=== PATIENT | female | born 1990 | race American Indian/Alaskan Native ===

== ENCOUNTER 2017-01-22 04:09 | Emergency (ER) | payer SELFPAY ==
[2017-01-22] MEDS ORDERED: MOTRIN ONE (04:31)
[2017-01-22] MEDS ORDERED: MOTRIN PO ONE (04:43)
[2017-01-22] MEDS ORDERED: NORCO 5/325 PO ONE (06:00)
--- NOTE | 2017-01-22 06:05 | Emergency Department Report ---
ED ENT HPI - General Chief complaint: Dental/Oral Stated complaint: TOOTHACHES, SWOLLEN MOUTH Time Seen by Provider: 01/22/17 05:57 Source: patient Mode of arrival: Ambulatory Limitations: Language Barrier - History of Present Illness Initial comments: 27-year-old female past medical history none presents with complaint of 4 days of left-sided toothache. Patient states that she has had issues with wisdom teeth. Has had dental evaluation and is scheduled for an extraction but missed her appointment twice. Patient states she'll follow up with dentist within the next few days. No muffled voice speaking in full sentences no stridor no wheezing, no drooling denies any pus or blood drainage from mouth. States that chewing is painful. MD complaint: tooth pain Onset/Timin -: days(s) Location: tooth # (17,18) Severity: moderate Severity scale (0 -10): 7 Quality: aching Consistency: intermittent Worsens with: eating Context- Dental: history of dental caries Associated Symptoms: toothache - Related Data Previous Rx's Medication Instructions Recorded Last Taken Type Ibuprofen [Motrin 800 MG tab] 800 mg PO TID PRN #15 tablet 09/08/13 Unknown Rx Amoxicillin [Trimox CAP] 500 mg PO Q8H #30 capsule 09/16/14 Unknown Rx HYDROcodone/APAP 10-325 [[place] 1 each PO Q6HR PRN #16 tablet 09/16/14 Unknown Rx 10-325 mg TAB] Ondansetron [Zofran ODT TAB] 4 mg PO Q6H PRN #8 tab.rapdis 01/26/15 Unknown Rx Cyclobenzaprine [Flexeril 10mg] 10 mg PO TID PRN #30 tablet 02/08/15 Unknown Rx Naproxen [Naprosyn] 500 mg PO BID #30 tablet 02/08/15 Unknown Rx traMADol [Ultram 50 MG tab] 50 mg PO Q6HR PRN #20 tablet 02/08/15 Unknown Rx Cyclobenzaprine [Flexeril] 10 mg PO TID PRN #20 tablet 12/01/15 Unknown Rx Ibuprofen [Motrin] 800 mg PO Q8HR PRN #30 tablet 12/01/15 Unknown Rx Acetaminophen/Codeine [Tylenol 1 tab PO Q6H PRN #12 tab 01/22/17 Unknown Rx /Codeine # 3 tab] Amoxicillin [Trimox CAP] 500 mg PO Q8H #21 capsule 01/22/17 Unknown Rx Chlorhexidine Mouthwash [Peridex] 118 ml MM BID #1 bottle 01/22/17 Unknown Rx Ibuprofen [Motrin] 600 mg PO Q8H PRN #30 tablet 01/22/17 Unknown Rx Allergies Allergy/AdvReac Type Severity Reaction Status Date / Time No Known Allergies Allergy Verified 09/16/14 06:20 ED Dental HPI - General Chief complaint: Dental/Oral Stated complaint: TOOTHACHES, SWOLLEN MOUTH Time Seen by Provider: 01/22/17 05:57 Source: patient Mode of arrival: Ambulatory Limitations: Language Barrier - Related Data Previous Rx's Medication Instructions Recorded Last Taken Type Ibuprofen [Motrin 800 MG tab] 800 mg PO TID PRN #15 tablet 09/08/13 Unknown Rx Amoxicillin [Trimox CAP] 500 mg PO Q8H #30 capsule 09/16/14 Unknown Rx HYDROcodone/APAP 10-325 [[place] 1 each PO Q6HR PRN #16 tablet 09/16/14 Unknown Rx 10-325 mg TAB] Ondansetron [Zofran ODT TAB] 4 mg PO Q6H PRN #8 tab.rapdis 01/26/15 Unknown Rx Cyclobenzaprine [Flexeril 10mg] 10 mg PO TID PRN #30 tablet 02/08/15 Unknown Rx Naproxen [Naprosyn] 500 mg PO BID #30 tablet 02/08/15 Unknown Rx traMADol [Ultram 50 MG tab] 50 mg PO Q6HR PRN #20 tablet 02/08/15 Unknown Rx Cyclobenzaprine [Flexeril] 10 mg PO TID PRN #20 tablet 12/01/15 Unknown Rx Ibuprofen [Motrin] 800 mg PO Q8HR PRN #30 tablet 12/01/15 Unknown Rx Acetaminophen/Codeine [Tylenol 1 tab PO Q6H PRN #12 tab 01/22/17 Unknown Rx /Codeine # 3 tab] Amoxicillin [Trimox CAP] 500 mg PO Q8H #21 capsule 01/22/17 Unknown Rx Chlorhexidine Mouthwash [Peridex] 118 ml MM BID #1 bottle 01/22/17 Unknown Rx Ibuprofen [Motrin] 600 mg PO Q8H PRN #30 tablet 01/22/17 Unknown Rx Allergies Allergy/AdvReac Type Severity Reaction Status Date / Time No Known Allergies Allergy Verified 09/16/14 06:20 ED Review of Systems ROS: Stated complaint: TOOTHACHES, SWOLLEN MOUTH Other details as noted in HPI Constitutional: denies: chills, fever Eyes: denies: eye pain, eye discharge, vision change ENT: dental pain. denies: ear pain, throat pain Respiratory: denies: cough, shortness of breath, wheezing Cardiovascular: denies: chest pain, palpitations Endocrine: no symptoms reported Gastrointestinal: denies: abdominal pain, nausea, diarrhea Genitourinary: denies: urgency, dysuria, discharge Musculoskeletal: denies: back pain, joint swelling, arthralgia Skin: denies: rash, lesions Neurological: denies: headache, weakness, paresthesias Psychiatric: denies: anxiety, depression Hematological/Lymphatic: denies: easy bleeding, easy bruising ED Past Medical Hx - Past Medical History Hx Diabetes: Yes (gestational) Hx Dementia: Yes (gestational diabetes) - Surgical History Additional Surgical History: . bilateral elbow surgery d/t staph. - Social History Smoking Status: Never Smoker Substance Use Type: None - Medications Home Medications: Home Medications Medication Instructions Recorded Confirmed Last Taken Type Ibuprofen [Motrin 800 MG tab] 800 mg PO TID PRN #15 tablet 09/08/13 Unknown Rx Amoxicillin [Trimox CAP] 500 mg PO Q8H #30 capsule 09/16/14 Unknown Rx HYDROcodone/APAP 10-325 [[place] 1 each PO Q6HR PRN #16 tablet 09/16/14 Unknown Rx 10-325 mg TAB] Ondansetron [Zofran ODT TAB] 4 mg PO Q6H PRN #8 tab.rapdis 01/26/15 Unknown Rx Cyclobenzaprine [Flexeril 10mg] 10 mg PO TID PRN #30 tablet 02/08/15 Unknown Rx Naproxen [Naprosyn] 500 mg PO BID #30 tablet 02/08/15 Unknown Rx traMADol [Ultram 50 MG tab] 50 mg PO Q6HR PRN #20 tablet 02/08/15 Unknown Rx Cyclobenzaprine [Flexeril] 10 mg PO TID PRN #20 tablet 12/01/15 Unknown Rx Ibuprofen [Motrin] 800 mg PO Q8HR PRN #30 tablet 12/01/15 Unknown Rx Acetaminophen/Codeine [Tylenol 1 tab PO Q6H PRN #12 tab 01/22/17 Unknown Rx /Codeine # 3 tab] Amoxicillin [Trimox CAP] 500 mg PO Q8H #21 capsule 01/22/17 Unknown Rx Chlorhexidine Mouthwash [Peridex] 118 ml MM BID #1 bottle 01/22/17 Unknown Rx Ibuprofen [Motrin] 600 mg PO Q8H PRN #30 tablet 01/22/17 Unknown Rx ED Physical Exam - General Limitations: Language Barrier General appearance: alert, in no apparent distress - Head Head exam: Present: atraumatic, normocephalic - Eye Eye exam: Present: normal appearance, PERRL, EOMI - ENT ENT exam: Present: mucous membranes moist - Expanded ENT Exam Expanded Mouth exam: Present: normal external inspection Teeth exam: Present: dental caries (17,18), dental tenderness # (17,18) - Neck Neck exam: Present: normal inspection, full ROM - Respiratory Respiratory exam: Present: normal lung sounds bilaterally. Absent: respiratory distress - Cardiovascular Cardiovascular Exam: Present: regular rate, normal rhythm. Absent: systolic murmur, diastolic murmur, rubs, gallop - GI/Abdominal GI/Abdominal exam: Present: soft, normal bowel sounds - Extremities Exam Extremities exam: Present: normal inspection, full ROM - Back Exam Back exam: Present: normal inspection - Neurological Exam Neurological exam: Present: alert, oriented X3, CN II-XII intact, normal gait - Psychiatric Psychiatric exam: Present: normal affect, normal mood - Skin Skin exam: Present: warm, dry, intact, normal color. Absent: rash ED Course Vital Signs 01/22/17 04:37 Temperature 98.2 F Pulse Rate 66 Respiratory 18 Rate Blood Pressure 127/71 Blood Pressure 127/71 [Left] O2 Sat by Pulse 98 Oximetry ED Medical Decision Making - Medical Decision Making A/P: Dental cavity 1-Motrin, Tylenol 3, amoxicillin 1 week, Peridex mouthwash 2-patient advised to follow up as soon as possible for dental cavity. I advised patient that lack of follow-up and untreated dental cavity can result in infection of face and jaw and if left untreated can progress to sepsis and become lethal. Patient understood these instructions and agreed to follow-up on outpatient basis with dentist as soon as possible. 3-advised to return to ED [facility] for any significant bleeding pus drainage from oral cavity inability to tolerate by mouth, dyspnea shortness of breath muffled voice and/or stridor Critical care attestation.: If time is entered above; I have spent that time in minutes in the direct care of this critically ill patient, excluding procedure time. ED Disposition Clinical Impression: Dental caries, Impacted third molar tooth Disposition: DISCHARGED TO HOME OR SELFCARE Is pt being admited?: No Does the pt Need Aspirin: No Condition: Stable Instructions: Dental Caries (ED), Toothache (ED) Prescriptions: Acetaminophen/Codeine [Tylenol /Codeine # 3 tab] 1 tab PO Q6H PRN #12 tab PRN Reason: Toothache Amoxicillin [Trimox CAP] 500 mg PO Q8H #21 capsule Chlorhexidine Mouthwash [Peridex] 118 ml MM BID #1 bottle Ibuprofen [Motrin] 600 mg PO Q8H PRN #30 tablet PRN Reason: Pain Referrals: [facility] [Outside] - 3-5 Days Forms: Work/School Release Form(ED) Time of Disposition: 06:03
[2017-01-22 06:48] VITALS: BP 122/68
== END 2017-01-22 06:48 | disposition home or self-care (01) ==
LOC: ED 04:09
DX: K02.9 Dental caries, unspecified (principal); K01.1 Impacted teeth
CPT/HCPCS: 99282

== ENCOUNTER 2018-01-29 09:48 | Emergency (ER) | payer MEDICAID ==
[2018-01-29 10:29] VITALS: BP 109/68
[2018-01-29] MEDS ORDERED: TYLENOL PO ONE (12:34)
--- NOTE | 2018-01-29 12:35 | Emergency Department Report ---
Blank Doc - Documentation Documentation: Patient is a 28-year-old black female was presented with some lower back discomfort past several days. Patient is 17 weeks she denies any dysuria vaginal discharge or vaginal bleeding at this time. Patient also states that she has some congestion lower nose lives clear drainage. Patient has some scratchiness of the throat as well.
[2018-01-29 13:39] LABS: Bilirubin,Urine NEG (Negative); Blood,Urine NEG (Negative); Color,Urine Yellow (Yellow); Mucus,Urine FEW /HPF; Protein,Urine <15 mg/dL mg/dL (Negative); Urobilinogen,Urine < 2.0 mg/dL (<2.0)
--- NOTE | 2018-01-29 14:18 | Emergency Department Report ---
ED HPI - General Chief complaint: Back Pain/Injury Stated complaint: BACK PAIN Time Seen by Provider: 01/29/18 12:29 Source: patient Mode of arrival: Ambulatory Limitations: No Limitations - History of Present Illness Initial comments: This is a 28-year-old female nontoxic, well nourished in appearance, no acute signs of distress presents to the ED with c/o of intermittent back pain x4 days. Patient also is c/o of rhinorrhea and nasal congestion as clear drainage but denies any cough. Patient stated has history of allergic rhinitis. Patient denies any abdominal pain, fever, chills, nausea, vomiting, headache, stiff neck. Patient denies any urinary symptoms. Denies any vaginal bleeding. Denies any allergies or significant past medical history. MD Complaint: other (back pain) -: days(s) (4) Location: other (low back) Radiation: none Severity: mild Severity scale (0 -10): 8 Quality: aching Consistency: intermittent, now resolved Improves with: none Worsens with: none Associated symptoms: denies other symptoms. denies: nausea/vomiting, vaginal bleeding, vaginal discharge, abdominal pain, dysuria, headache, vision changes, malaise, dysparuenia, rash, seizure, shortness of breath, syncope, weakness Vaginal bleeding: none :: Yes Number of weeks : 17 OB History - Current : no complications OB History - Previous Pregnancies: gestational diabetes Pre-tammy care: followed by OB - Related Data : 2 Para: 1 Ab: 0 Previous Rx's Medication Instructions Recorded Last Taken Type Ibuprofen [Motrin 800 MG tab] 800 mg PO TID PRN #15 tablet 09/08/13 Unknown Rx Amoxicillin [Trimox CAP] 500 mg PO Q8H #30 capsule 09/16/14 Unknown Rx HYDROcodone/APAP 10-325 [[place] 1 each PO Q6HR PRN #16 tablet 09/16/14 Unknown Rx 10-325 mg TAB] Ondansetron [Zofran ODT TAB] 4 mg PO Q6H PRN #8 tab.rapdis 01/26/15 Unknown Rx Cyclobenzaprine [Flexeril 10mg] 10 mg PO TID PRN #30 tablet 02/08/15 Unknown Rx Naproxen [Naprosyn] 500 mg PO BID #30 tablet 05/10/15 Unknown Rx traMADol [Ultram 50 MG tab] 50 mg PO Q6HR PRN #20 tablet 02/08/15 Unknown Rx Cyclobenzaprine [Flexeril] 10 mg PO TID PRN #20 tablet 12/01/15 Unknown Rx Ibuprofen [Motrin] 800 mg PO Q8HR PRN #30 tablet 12/01/15 Unknown Rx Acetaminophen/Codeine [Tylenol 1 tab PO Q6H PRN #12 tab 01/22/17 Unknown Rx /Codeine # 3 tab] Amoxicillin [Trimox CAP] 500 mg PO Q8H #21 capsule 01/22/17 Unknown Rx Chlorhexidine Mouthwash [Peridex] 118 ml MM BID #1 bottle 01/22/17 Unknown Rx Ibuprofen [Motrin] 600 mg PO Q8H PRN #30 tablet 01/22/17 Unknown Rx Acetaminophen 500 mg PO Q8H PRN #30 tablet 01/29/18 Unknown Rx Fluticasone [Flonase] 1 spray NS QDAY #1 bottle 01/29/18 Unknown Rx Allergies Allergy/AdvReac Type Severity Reaction Status Date / Time No Known Allergies Allergy Verified 09/16/14 06:20 ED Review of Systems ROS: Stated complaint: BACK PAIN Other details as noted in HPI Constitutional: denies: chills, fever Eyes: denies: eye pain, eye discharge, vision change ENT: denies: ear pain, throat pain Respiratory: denies: cough, shortness of breath, wheezing Cardiovascular: denies: chest pain, palpitations Endocrine: no symptoms reported Gastrointestinal: denies: abdominal pain, nausea, diarrhea Genitourinary: denies: urgency, dysuria, discharge Musculoskeletal: back pain. denies: joint swelling, arthralgia Skin: denies: rash, lesions Neurological: denies: headache, weakness, paresthesias Psychiatric: denies: anxiety, depression Hematological/Lymphatic: denies: easy bleeding, easy bruising ED Past Medical Hx - Past Medical History Hx Diabetes: Yes (gestational) Hx Dementia: (gestational diabetes) - Surgical History Additional Surgical History: . bilateral elbow surgery d/t staph. - Social History Smoking Status: Never Smoker Substance Use Type: None - Medications Home Medications: Home Medications Medication Instructions Recorded Confirmed Last Taken Type Ibuprofen [Motrin 800 MG tab] 800 mg PO TID PRN #15 tablet 09/08/13 Unknown Rx Amoxicillin [Trimox CAP] 500 mg PO Q8H #30 capsule 09/16/14 Unknown Rx HYDROcodone/APAP 10-325 [[place] 1 each PO Q6HR PRN #16 tablet 09/16/14 Unknown Rx 10-325 mg TAB] Ondansetron [Zofran ODT TAB] 4 mg PO Q6H PRN #8 tab.rapdis 01/26/15 Unknown Rx Cyclobenzaprine [Flexeril 10mg] 10 mg PO TID PRN #30 tablet 02/08/15 Unknown Rx Naproxen [Naprosyn] 500 mg PO BID #30 tablet 02/08/15 Unknown Rx traMADol [Ultram 50 MG tab] 50 mg PO Q6HR PRN #20 tablet 02/08/15 Unknown Rx Cyclobenzaprine [Flexeril] 10 mg PO TID PRN #20 tablet 12/01/15 Unknown Rx Ibuprofen [Motrin] 800 mg PO Q8HR PRN #30 tablet 12/01/15 Unknown Rx Acetaminophen/Codeine [Tylenol 1 tab PO Q6H PRN #12 tab 01/22/17 Unknown Rx /Codeine # 3 tab] Amoxicillin [Trimox CAP] 500 mg PO Q8H #21 capsule 01/22/17 Unknown Rx Chlorhexidine Mouthwash [Peridex] 118 ml MM BID #1 bottle 01/22/17 Unknown Rx Ibuprofen [Motrin] 600 mg PO Q8H PRN #30 tablet 01/22/17 Unknown Rx Acetaminophen 500 mg PO Q8H PRN #30 tablet 01/29/18 Unknown Rx Fluticasone [Flonase] 1 spray NS QDAY #1 bottle 01/29/18 Unknown Rx ED Physical Exam - General Limitations: No Limitations General appearance: alert, in no apparent distress - Head Head exam: Present: atraumatic, normocephalic - Eye Eye exam: Present: normal appearance Pupils: Present: normal accommodation - ENT ENT exam: Present: normal exam, normal orophraynx, mucous membranes moist, TM's normal bilaterally, normal external ear exam - Neck Neck exam: Present: normal inspection, full ROM. Absent: tenderness, meningismus - Respiratory Respiratory exam: Present: normal lung sounds bilaterally. Absent: respiratory distress, wheezes, rales, rhonchi, stridor, chest wall tenderness, accessory muscle use, decreased breath sounds, prolonged expiratory - Cardiovascular Cardiovascular Exam: Present: regular rate, normal rhythm, normal heart sounds. Absent: irregular rhythm, systolic murmur, diastolic murmur, rubs, gallop - GI/Abdominal GI/Abdominal exam: Present: soft, normal bowel sounds. Absent: distended, tenderness, guarding, rebound, rigid, diminished bowel sounds - Rectal Rectal exam: Present: deferred - Extremities Exam Extremities exam: Present: normal inspection, full ROM, normal capillary refill - Back Exam Back exam: Present: normal inspection, full ROM, paraspinal tenderness (lumbar region). Absent: tenderness, CVA tenderness (R), CVA tenderness (L), muscle spasm, vertebral tenderness, rash noted - Neurological Exam Neurological exam: Present: alert, oriented X3, normal gait - Psychiatric Psychiatric exam: Present: normal affect, normal mood - Skin Skin exam: Present: warm, dry, intact, normal color. Absent: rash ED Course Vital Signs 01/29/18 10:25 Temperature 98.8 F Pulse Rate 94 H Respiratory 17 Rate Blood Pressure 109/68 O2 Sat by Pulse 99 Oximetry - Reevaluation(s) Reevaluation #1: 01/29/18 14:17 Patient is speaking in full sentences with no signs of distress noted. - Consultations Consultation #1: 01/29/18 14:18 Patient has been consulted with Dr. Scales about patient history, physical exam , and labs and examined and screened patient and agrees to ED plan of care and discharge plan of care. ED Medical Decision Making - Medical Decision Making This is a 28-year-old female that presents with back pain and allergic rhinitis. Patient was examined by me and Dr. Scales. A heart tone has been obtained by RN with 158. Patient received Tylenol in the ED in the ED and patient stated that symptoms have resolved and subsided. A UA obtained and within normal limits. She is discharged with Flonase and Tylenol. Patient was instructed to Follow-up with a primary care doctor in 3-5 days or if symptoms worsen and continue return to emergency room as soon as possible. At time of discharge, the patient does not seem toxic or ill in appearance. No acute signs of distress noted. Patient agrees to discharge treatment plan of care. No further questions noted by the patient. Critical care attestation.: If time is entered above; I have spent that time in minutes in the direct care of this critically ill patient, excluding procedure time. ED Disposition Clinical Impression: Back pain Qualifiers: Back pain location: low back pain Chronicity: acute Back pain laterality: unspecified Sciatica presence: without sciatica Qualified Code(s): M54.5 - Low back pain Allergic rhinitis Qualifiers: Allergic rhinitis trigger: unspecified Allergic rhinitis seasonality: seasonal Qualified Code(s): J30.2 - Other seasonal allergic rhinitis Disposition: TO HOME OR SELFCARE Is pt being admited?: No Does the pt Need Aspirin: No Condition: Stable Instructions: (ED) Additional Instructions: Follow-up with a primary care doctor in 3-5 days or if symptoms worsen and continue return to emergency room as soon as possible. Prescriptions: Acetaminophen 500 mg PO Q8H PRN #30 tablet PRN Reason: pain Fluticasone [Flonase] 1 spray NS QDAY #1 bottle Referrals: PRIMARY CAREMD [Primary Care Provider] - 3-5 Days PHYLLIS BE MD [Staff Physician] - 3-5 Days [facility] [Provider Group] - 3-5 Days
== END 2018-01-29 14:38 | disposition home or self-care (01) ==
LOC: ED 09:48
DX: O26.892 Other specified pregnancy related conditions, second trimester (principal); M54.5 Low back pain; O99.512 Diseases of the respiratory system complicating pregnancy, second trimester; J30.2 Other seasonal allergic rhinitis; O24.419 Gestational diabetes mellitus in pregnancy, unspecified control; Z3A.17 17 weeks gestation of pregnancy
CPT/HCPCS: 81001; 99283

== ENCOUNTER 2018-04-29 12:56 | Emergency (ER) | payer MEDICAID ==
[2018-04-29] MEDS ORDERED: NACL 0.9% 1000 ML 1,000 ML IV ONE (13:09)
[2018-04-29] MEDS ORDERED: TYLENOL PO ONE (13:09)
[2018-04-29 13:45] LABS: Basophils # (Auto) 0.1 K/mm3 (0.0-0.1); Basophils % (Auto) 0.4 % (0.0-1.8); Eosinophils # (Auto) 0.2 K/mm3 (0.0-0.4); Eosinophils % (Auto) 1.2 % (0.0-4.3); Hematocrit 32.2 % (30.3-42.9); Hemoglobin 10.4 gm/dl (10.1-14.3); Lymphocytes % (Auto) 15.8 % (13.4-35.0); Mean Corpuscular HGB Conc 32 % (30-34); Mean Corpuscular Volume 74 fl (79-97); Monocytes # (Auto) 1.2 K/mm3 (0.0-0.8); Monocytes % (Auto) 9.6 % (0.0-7.3); Platelet Count 194 K/mm3 (140-440); Red Blood Count 4.35 M/mm3 (3.65-5.03)
[2018-04-29 13:58] LABS: Mean Corpuscular Hemoglobin 24 pg (28-32)
[2018-04-29 14:09] LABS: BUN/Creatinine Ratio 10; Blood Urea Nitrogen 5 mg/dL (7-17); Hemolysis Index 4
[2018-04-29 15:05] LABS: Bacteria,Urine 4+ /HPF (Negative); Bilirubin,Urine NEG (Negative); Blood,Urine NEG (Negative); Color,Urine Yellow (Yellow); Mucus,Urine FEW /HPF; Urobilinogen,Urine < 2.0 mg/dL (<2.0)
--- NOTE | 2018-04-29 15:31 | Emergency Department Report ---
ED General Adult HPI - General Chief complaint: Pain General Stated complaint: COUGHING BLOOD Time Seen by Provider: 04/29/18 13:03 Source: patient Mode of arrival: Ambulatory Limitations: No Limitations - History of Present Illness Initial comments: Patient is a 28-year-old Female started weeks who is presenting with an episode where she became very hot and dizzy and then started having a nosebleed. Patient states she got off this morning from work and went straight to [employer] while at [employer] she stated that she felt somewhat hot and near syncopal. Patient states she felt as though her blood sugar was low and she left. Patient states that after she left she vomited several times and after vomiting started getting a nosebleed. Patient states that afterwards she then coughed up some blood. Patient states that she no longer feels is nauseous at the moment but just feels some achiness in her bilateral calves. Patient denies any current shortness of breath fevers chills. Patient was isolated labor and delivery and was not noted to be in labor. Severity scale (0 -10): 3 - Related Data Previous Rx's Medication Instructions Recorded Last Taken Type Ibuprofen [Motrin 800 MG tab] 800 mg PO TID PRN #15 tablet 09/08/13 Unknown Rx Amoxicillin [Trimox CAP] 500 mg PO Q8H #30 capsule 09/16/14 Unknown Rx HYDROcodone/APAP 10-325 [[place] 1 each PO Q6HR PRN #16 tablet 09/16/14 Unknown Rx 10-325 mg TAB] Ondansetron [Zofran ODT TAB] 4 mg PO Q6H PRN #8 tab.rapdis 01/26/15 Unknown Rx Cyclobenzaprine [Flexeril 10mg] 10 mg PO TID PRN #30 tablet 02/08/15 Unknown Rx Naproxen [Naprosyn] 500 mg PO BID #30 tablet 02/08/15 Unknown Rx traMADol [Ultram 50 MG tab] 50 mg PO Q6HR PRN #20 tablet 02/08/15 Unknown Rx Cyclobenzaprine [Flexeril] 10 mg PO TID PRN #20 tablet 12/01/15 Unknown Rx Ibuprofen [Motrin] 800 mg PO Q8HR PRN #30 tablet 12/01/15 Unknown Rx Acetaminophen/Codeine [Tylenol 1 tab PO Q6H PRN #12 tab 01/22/17 Unknown Rx /Codeine # 3 tab] Amoxicillin [Trimox CAP] 500 mg PO Q8H #21 capsule 01/22/17 Unknown Rx Chlorhexidine Mouthwash [Peridex] 118 ml MM BID #1 bottle 01/22/17 Unknown Rx Ibuprofen [Motrin] 600 mg PO Q8H PRN #30 tablet 01/22/17 Unknown Rx Acetaminophen 500 mg PO Q8H PRN #30 tablet 01/29/18 Unknown Rx Fluticasone [Flonase] 1 spray NS QDAY #1 bottle 01/29/18 Unknown Rx Nitrofurantoin Monohyd/M-Cryst 100 mg PO BID #14 capsule 04/29/18 Unknown Rx [Macrobid 100 mg Capsule] Allergies Allergy/AdvReac Type Severity Reaction Status Date / Time No Known Allergies Allergy Verified 04/29/18 13:06 ED Review of Systems ROS: Stated complaint: COUGHING BLOOD Other details as noted in HPI Comment: All other systems reviewed and negative ED Past Medical Hx - Past Medical History Previous Medical History?: Yes Hx Hypertension: No Hx Diabetes: Yes (gestational) Hx Deep Vein Thrombosis: No Hx Renal Disease: No Hx Sickle Cell Disease: No Hx Seizures: No Hx Asthma: No Hx Dementia: (gestational diabetes) Hx HIV: No - Surgical History Past Surgical History?: Yes Additional Surgical History: . bilateral elbow surgery d/t staph. - Social History Smoking Status: Never Smoker Substance Use Type: None - Medications Home Medications: Home Medications Medication Instructions Recorded Confirmed Last Taken Type Ibuprofen [Motrin 800 MG tab] 800 mg PO TID PRN #15 tablet 09/08/13 Unknown Rx Amoxicillin [Trimox CAP] 500 mg PO Q8H #30 capsule 09/16/14 Unknown Rx HYDROcodone/APAP 10-325 [[place] 1 each PO Q6HR PRN #16 tablet 09/16/14 Unknown Rx 10-325 mg TAB] Ondansetron [Zofran ODT TAB] 4 mg PO Q6H PRN #8 tab.rapdis 01/26/15 Unknown Rx Cyclobenzaprine [Flexeril 10mg] 10 mg PO TID PRN #30 tablet 02/08/15 Unknown Rx Naproxen [Naprosyn] 500 mg PO BID #30 tablet 02/08/15 Unknown Rx traMADol [Ultram 50 MG tab] 50 mg PO Q6HR PRN #20 tablet 02/08/15 Unknown Rx Cyclobenzaprine [Flexeril] 10 mg PO TID PRN #20 tablet 12/01/15 Unknown Rx Ibuprofen [Motrin] 800 mg PO Q8HR PRN #30 tablet 12/01/15 Unknown Rx Acetaminophen/Codeine [Tylenol 1 tab PO Q6H PRN #12 tab 01/22/17 Unknown Rx /Codeine # 3 tab] Amoxicillin [Trimox CAP] 500 mg PO Q8H #21 capsule 01/22/17 Unknown Rx Chlorhexidine Mouthwash [Peridex] 118 ml MM BID #1 bottle 01/22/17 Unknown Rx Ibuprofen [Motrin] 600 mg PO Q8H PRN #30 tablet 01/22/17 Unknown Rx Acetaminophen 500 mg PO Q8H PRN #30 tablet 01/29/18 Unknown Rx Fluticasone [Flonase] 1 spray NS QDAY #1 bottle 01/29/18 Unknown Rx Nitrofurantoin Monohyd/M-Cryst 100 mg PO BID #14 capsule 04/29/18 Unknown Rx [Macrobid 100 mg Capsule] ED Physical Exam - General Limitations: No Limitations General appearance: alert, in no apparent distress - Head Head exam: Present: atraumatic, normocephalic - Eye Eye exam: Present: normal appearance - ENT ENT exam: Present: mucous membranes moist - Neck Neck exam: Present: normal inspection - Respiratory Respiratory exam: Present: normal lung sounds bilaterally. Absent: respiratory distress, wheezes, rales, rhonchi - Cardiovascular Cardiovascular Exam: Present: regular rate, normal rhythm. Absent: systolic murmur, diastolic murmur, rubs, gallop - GI/Abdominal GI/Abdominal exam: Present: soft, distended, normal bowel sounds. Absent: tenderness, guarding, rebound, rigid - Extremities Exam Extremities exam: Present: normal inspection - Back Exam Back exam: Present: normal inspection - Neurological Exam Neurological exam: Present: alert, oriented X3 - Psychiatric Psychiatric exam: Present: normal affect, normal mood - Skin Skin exam: Present: warm, dry, intact, normal color. Absent: rash ED Course Vital Signs 04/29/18 04/29/18 13:04 13:10 Temperature 98.0 F Pulse Rate 87 Respiratory 16 18 Rate Blood Pressure 116/57 O2 Sat by Pulse 99 Oximetry ED Medical Decision Making - Lab Data Result diagrams: 04/29/18 13:16 04/29/18 13:16 Lab Results 04/29/18 04/29/18 04/29/18 Range/Units 13:16 13:16 14:30 WBC 12.9 H (4.5-11.0) K/mm3 RBC 4.35 (3.65-5.03) M/mm3 Hgb 10.4 (10.1-14.3) gm/dl Hct 32.2 (30.3-42.9) % MCV 74 L (79-97) fl MCH 24 L (28-32) pg MCHC 32 (30-34) % RDW 14.0 (13.2-15.2) % Plt Count 194 (140-440) K/mm3 Lymph % (Auto) 15.8 (13.4-35.0) % [place] % (Auto) 9.6 H (0.0-7.3) % Eos % (Auto) 1.2 (0.0-4.3) % Baso % (Auto) 0.4 (0.0-1.8) % Lymph # 2.0 (1.2-5.4) K/mm3 [place] # 1.2 H (0.0-0.8) K/mm3 Eos # 0.2 (0.0-0.4) K/mm3 Baso # 0.1 (0.0-0.1) K/mm3 Seg Neutrophils % 73.0 H (40.0-70.0) % Seg Neutrophils # 9.4 H (1.8-7.7) K/mm3 Sodium 136 L (137-145) mmol/L Potassium 3.6 (3.6-5.0) mmol/L Chloride 99.9 (98-107) mmol/L Carbon Dioxide 22 (22-30) mmol/L Anion Gap 18 mmol/L BUN 5 L (7-17) mg/dL Creatinine 0.5 L (0.7-1.2) mg/dL Estimated GFR > 60 ml/min BUN/Creatinine Ratio 10 % Glucose 103 H (65-100) mg/dL Calcium 9.0 (8.4-10.2) mg/dL Urine Color Yellow (Yellow) Urine Turbidity Slightly-cloudy (Clear) Urine pH 5.0 (5.0-7.0) Ur Specific [place] 1.030 (1.003-1.030) Urine Protein 30 mg/dl (Negative) mg/dL Urine Glucose (UA) 150 (Negative) mg/dL Urine Ketones 20 (Negative) mg/dL Urine Blood Neg (Negative) Urine Nitrite Neg (Negative) Urine Bilirubin Neg (Negative) Urine Urobilinogen < 2.0 (<2.0) mg/dL Ur Leukocyte Esterase Sm (Negative) Urine WBC (Auto) 16.0 H (0.0-6.0) /HPF Urine RBC (Auto) 6.0 (0.0-6.0) /HPF U Epithel Cells (Auto) 13.0 (0-13.0) /HPF Urine Bacteria (Auto) 4+ (Negative) /HPF Urine Mucus Few /HPF Urine Yeast (Bud[place]) 1+ /HPF - Medical Decision Making Patient does exhibit some very mild hyponatremia on her lab studies. Patient rehydrated here in the emergency department. Patient also has a urinary tract infection as well. Patient was started on Macrobid. Patient has no further epistaxis. Critical care attestation.: If time is entered above; I have spent that time in minutes in the direct care of this critically ill patient, excluding procedure time. ED Disposition Clinical Impression: Dehydration, Epistaxis UTI (urinary tract infection) Qualifiers: Urinary tract infection type: acute cystitis Hematuria presence: without hematuria Qualified Code(s): N30.00 - Acute cystitis without hematuria Disposition: TO HOME OR SELFCARE Is pt being admited?: No Does the pt Need Aspirin: No Condition: Stable Instructions: Urinary Tract Infection in Women (ED), Dehydration (ED) Referrals: PRIMARY CARE, [Primary Care Provider] - 3-5 Days
[2018-04-29 16:48] VITALS: BP 109/38
== END 2018-04-29 16:50 | disposition home or self-care (01) ==
LOC: ED 12:56
DX: E86.0 Dehydration (principal); N39.0 Urinary tract infection, site not specified; R04.0 Epistaxis
CPT/HCPCS: 36415; 80048; 81001; 85025; 96360; 96361; 99283; J7030

== ENCOUNTER → 2018-04-29 | Emergency (ER) | payer MEDICAID ==
[2018-04-29 15:04] VITALS: BP 109/55
== END ==
LOC: TRG 11:18 → ED 11:18 → TRG 11:20 → EDSTATUS 12:22 → TRG 15:07
DX: R04.0 Epistaxis (principal); Z53.21 Procedure and treatment not carried out due to patient leaving prior to being seen by health care provider